=== PATIENT | female | born 1950 | race Caucasian/White ===

== ENCOUNTER 2020-11-09 15:06 | Emergency (ER) | payer MEDICARE, MEDICAID ==
--- NOTE | 2020-11-09 15:20 | EDM.PDOC ---
ED HPI GENERAL MEDICAL PROBLEM - General Chief Complaint: Respiratory Problem Stated Complaint: PAIN IN LEFT CHEST Time Seen by Provider: 11/09/20 15:30 Source of Information: Reports: Patient History Limitations: Reports: Physical Impairment (It is extremely hard of hearing and her hearing aids apparently are broken.) - History of Present Illness INITIAL COMMENTS - FREE TEXT/NARRATIVE: 70-year-old female sent over from [facility] for evaluation of left-sided chest pain that started this morning. Patient reports that she has been coughing paroxysmal Julio C off and on for the better part of 3 weeks. She has a history of COPD but is not on any oxygen. She states she does have nasal congestion and cold symptoms for that length of time. She was tested for COVID- 19 on November 03 and was negative. She does not believe she has had a fever or any chills. Her appetite has been good. She denies any sputum production. No hemoptysis. She has no history of congestive heart failure ECG done by triage nurses does not show any signs of ischemia. He does show early R wave transition at V2 suggesting right ventricular perjury pattern versus septal hypertrophy pattern. Onset: Today (Pleuritic leg pain started in her left anterior and posterior left chest this morning.), Unknown/Unsure (Has had a paroxysmal nonproductive cough for the better part of 3 weeks. Associated with nasal congestion and I believe postnasal drip.) Onset Date: 11/09/20 (Left anterior posterior chest pain started today. Paroxysmal nonproductive cough for the better part of 3 weeks.) Duration: Hour(s):, Waxing/Waning Location: Reports: Chest (Complains of left anterior posterior lower lung pain or chest pain radiating to her back. This started this morning. This is preceded by a nonproductive paroxysmal cough for the last 3 weeks. Associated mild nasal congestion and postnasal drip.) Quality: Reports: Other (Is sharp and stabbing and pleuritic left chest wall) Severity: Mild Improves with: Reports: Rest Worsens with: Reports: Other (Deep breathing and coughing.) Context: Denies: Activity, Exercise, Lifting, Sick Contact, Trauma, Other Associated Symptoms: Reports: No Other Symptoms, Chest Pain, Cough (See history of present illness). 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) Left Chest Pain Score (Numeric/FACES): 4 - Related Data Allergies Allergy/AdvReac Type Severity Reaction Status Date / Time acetaminophen Allergy Other Verified 11/09/20 15:16 [From Tylenol-Codeine #3] codeine Allergy Other Verified 11/09/20 15:16 [From Tylenol-Codeine #3] Home Meds: Home Meds Iron Polysaccharide Complex [Iferex 150] 150 mg PO DAILY 09/12/19 [History] Metoprolol Tartrate 12.5 mg PO BID 09/12/19 [History] Rosuvastatin [Crestor] 20 mg PO DAILY 09/12/19 [History] Acetaminophen [Tylenol Arthritis Pain] 650 mg PO Q6H PRN 11/09/20 [History] Aspirin 81 mg PO DAILY 11/09/20 [History] Cholecalciferol (Vitamin D3) [D-2000] 2,000 unit PO DAILY 11/09/20 [History] Dicyclomine [Bentyl] 20 mg PO Q6H PRN #12 tablet 11/09/20 [Rx] Escitalopram Oxalate [Lexapro] 10 mg PO BEDTIME 11/09/20 [History] Fluticasone Propionate [Flovent] 1 puff IH DAILY 11/09/20 [History] Ipratropium/Albuterol Sulfate [Iprat-Albut 0.5-3(2.5) mg/3 ml] 3 ml IH QID PRN 11/09/20 [History] Melatonin 3 mg PO BEDTIME 11/09/20 [History] Mirtazapine [Remeron] 7.5 mg PO BEDTIME 11/09/20 [History] Paliperidone [Invega] 3 mg PO BEDTIME 11/09/20 [History] QUEtiapine Fumarate [Seroquel] 400 mg PO BID 11/09/20 [History] Sennosides [Senna] 8.6 mg PO BID 11/09/20 [History] polyethylene glycoL 3350 [MiraLAX] 17 gm PO DAILY 11/09/20 [History] Past Medical History Respiratory History: Reports: COPD Genitourinary History: Reports: Other (See Below) (And frequency with urge incontinence.) Psychiatric History: Reports: Dementia - Infectious Disease History Infectious Disease History: Reports: None - Past Surgical History Female Surgical History: Reports: Hysterectomy (Vaginally assisted hysterectomy), Tubal Ligation Social & Family History - Family History Family Medical History: No Pertinent Family History - Tobacco Use Tobacco Use Status *Q: Never Tobacco User - Caffeine Use Caffeine Use: Reports: None - Recreational Drug Use Recreational Drug Use: No - Living Situation & Occupation Living situation: Reports: Extended Care Facility (Currently a resident of [facility].) Occupation: Retired ED ROS GENERAL - Review of Systems Review Of Systems: See Below Constitutional: Denies: Fever, Chills, Malaise, Weakness, Fatigue, Night Sweats, Decreased Appetite, Weight Loss HEENT: Reports: Hearing Loss (She is extremely hard of hearing and her hearing aids are broken.), Sinus Problem (She reports sinuses are congested with a bit of postnasal drip.). Denies: Nosebleed, Throat Pain, Throat Swelling Respiratory: Reports: Pleuritic Chest Pain (Pleuritic type left anterior chest pain rating to her back starting this morning. This is predated by paroxysmal nonproductive cough for the better part of), Cough ( 3 weeks.). Denies: Shortness of Breath, Wheezing, Sputum, Hemoptysis ( Nonproductive cough x3 weeks) Cardiovascular: Reports: Chest Pain (Anterior lower chest pain rating through to her back starting this morning.), Blood Pressure Problem. Denies: Claudication, Dyspnea on Exertion, Edema, Lightheadedness, Orthopnea, Palpitations Endocrine: Reports: Fatigue GI/Abdominal: Reports: Constipation (No problems with constipation.) : Reports: Frequency (Urge component at times), Incontinence Musculoskeletal: Reports: Back Pain, Joint Pain (Sips neck and shoulders at times.) Skin: Reports: No Symptoms Neurological: Reports: No Symptoms Psychiatric: Reports: No Symptoms Hematologic/Lymphatic: Reports: No Symptoms Immunologic: Reports: No Symptoms ED EXAM, GENERAL - Physical Exam Exam: See Below Exam Limited By: Physical Impairment (Very hard of hearing. I did take my mask off so that she could lip read to understand me.) General Appearance: Alert, WD/WN, No Apparent Distress, Other (Temperature is 37.2 degrees. Heart rate was 99 and sinus respectively is 26 with O2 sats of 95% after getting into the exam room. BP is BP is 155/74) Eye Exam: Bilateral Eye: Normal Inspection, PERRL (No blepharal pallor or scleral icterus.) Ears: Normal TMs Throat/Mouth: Normal Oropharynx, Other Head: Atraumatic, Normocephalic (Is mildly dry and coated. No oropharyngeal infection or obvious postnasal drip evident.) Neck: Normal Inspection, Full Range of Motion, Tender Lateral (Stout on palpation of the lateral cervical spine bilaterally. She states no worse than normal.). No: Lymphadenopathy (L), Lymphadenopathy (R) Respiratory/Chest: No Accessory Muscle Use, Respiratory Distress (If needed rest with O2 sats of 95%.), Decreased Breath Sounds (He decreased air to the lower 20% of the lungs posteriorly.), Rales (Rales/crackles left lung base and perhaps very few appreciated in the right lung base.). No: Lungs Clear, Normal Breath Sounds Cardiovascular: Regular Rate, Rhythm, No Gallop, No JVD, No Murmur. No: No Edema Peripheral Pulses: 2+: Carotid (L), Carotid (R), Posterior Tibial (L), Posterior Tibial (R), Dorsalis Pedis (L), Dorsalis Pedis (R) GI/Abdominal: Normal Bowel Sounds, Soft, Non-Tender, No Organomegaly, No Mass, Pelvis Stable, Distended (Julio C distended and slightly tympanic to percussion in the epigastrium compatible with some degree of aerophagia.), Other (Infraumbilical surgical wound she states from tubal ligation.) Back Exam: Normal Inspection, Decreased Range of Motion (Watered kyphosis thoracic spine.), Other. No: CVA Tenderness (L), CVA Tenderness (R) Extremities: Normal Inspection, Normal Range of Motion, Non-Tender, Pedal Edema (Trace pedal edema at the ankles.) Neurological: Alert, Oriented, CN II-XII Intact, Normal Cognition Psychiatric: Normal Affect, Normal Mood, Other (Not appear to be in a severe pain.) Skin Exam: Warm, Dry, Intact, Normal Color, No Rash #1 Interpretation EKG Date: 11/09/20 Time: 15:14 Rhythm: NSR Rate (Beats/Min): 94 [place]: Normal P-Wave: Present QRS: Other (Early R wave transition V2 consider right ventricular hypertrophy versus septal hypertrophy pattern.) ST-T: Normal QT: Normal EKG Interpretation Comments: Borderline ECG no signs of ischemia Course - Vital Signs Last Recorded V/S: Last Vital Signs Temp 37.2 C 11/09/20 15:13 Pulse 87 11/09/20 18:15 Resp 18 11/09/20 18:15 BP 147/85 H 11/09/20 18:15 Pulse Ox 97 11/09/20 18:15 - Orders/Labs/Meds Orders: Active Orders 24 hr Category Date Time Status PRO B-TYPE NATRIUR PEPT,BNPPRO [CHEM] Stat Lab 11/09/20 15:52 Received Peripheral IV Insertion Adult [OM.PC] Stat Oth 11/09/20 15:35 Ordered EKG 12 Lead [EK] Stat Ther 11/09/20 15:19 Ordered Labs: Laboratory Tests 11/09/20 11/09/20 11/09/20 Range/Units 15:52 15:52 15:52 WBC 8.49 (3.98-10.04) K/mm3 RBC 4.44 (3.98-5.22) M/mm3 Hgb 13.1 (11.2-15.7) gm/dl Hct 40.6 (34.1-44.9) % MCV 91.4 (79.4-94.8) fl MCH 29.5 (25.6-32.2) pg MCHC 32.3 (32.2-35.5) g/dl RDW Std Deviation 52.6 H (36.4-46.3) fL Plt Count 378 H (182-369) K/mm3 MPV 8.6 L (9.4-12.3) fl Neut % (Auto) 36.4 (34.0-71.1) % Lymph % (Auto) 44.6 (19.3-51.7) % [place] % (Auto) 12.4 (4.7-12.5) % Eos % (Auto) 6.0 H (0.7-5.8) Baso % (Auto) 0.4 (0.1-1.2) % Neut # (Auto) 3.09 (1.56-6.13) K/mm3 Lymph # (Auto) 3.79 H (1.18-3.74) K/mm3 [place] # (Auto) 1.05 H (0.24-0.36) K/mm3 Eos # (Auto) 0.51 H (0.04-0.36) K/mm3 Baso # (Auto) 0.03 (0.01-0.08) K/mm3 PT 10.7 (9.7-12.0) SECONDS INR 1.00 APTT 26.1 (21.7-31.4) SECONDS D-Dimer, Quantitative (0.19-0.50) mg/L Sodium 142 (136-145) mEq/L Potassium 4.2 (3.5-5.1) mEq/L Chloride 106 (98-107) mEq/L Carbon Dioxide 26 (21-32) mEq/L Anion Gap 14.2 (5-15) BUN 20 H (7-18) mg/dL Creatinine 1.0 (0.55-1.02) mg/dL Est Cr Clr Drug Dosing 49.45 mL/min Estimated GFR (MDRD) 55 (>60) mL/min BUN/Creatinine Ratio 20.0 H (14-18) Glucose 98 (83-115) mg/dL Calcium 9.7 (8.5-10.1) mg/dL Magnesium 2.1 (1.8-2.4) mg/dl Total Bilirubin 0.2 (0.2-1.0) mg/dL AST 14 L (15-37) U/L ALT 19 (14-59) U/L Alkaline Phosphatase 95 (46-116) U/L CK-MB (CK-2) < 0.5 (0-3.6) ng/ml Troponin I < 0.017 (0.00-0.056) ng/mL C-Reactive Protein < 0.2 (<1.0) mg/dL Total Protein 7.7 (6.4-8.2) g/dl Albumin 3.8 (3.4-5.0) g/dl Globulin 3.9 gm/dL Albumin/Globulin Ratio 1.0 (1-2) Urine Color (Yellow) Urine Appearance (Clear) Urine pH (5.0-8.0) Ur Specific [place] (1.005-1.030) Urine Protein (Negative) Urine Glucose (UA) (Negative) Urine Ketones (Negative) Urine Occult Blood (Negative) Urine Nitrite (Negative) Urine Bilirubin (Negative) Urine Urobilinogen (0.2-1.0) Ur Leukocyte Esterase (Negative) Urine RBC (0-5) /hpf Urine WBC (0-5) /hpf Ur Squamous Epith Cells (0-5) /hpf Urine Bacteria (FEW) /hpf Urine Mucus (FEW) /hpf 11/09/20 11/09/20 Range/Units 15:52 16:39 WBC (3.98-10.04) K/mm3 RBC (3.98-5.22) M/mm3 Hgb (11.2-15.7) gm/dl Hct (34.1-44.9) % MCV (79.4-94.8) fl MCH (25.6-32.2) pg MCHC (32.2-35.5) g/dl RDW Std Deviation (36.4-46.3) fL Plt Count (182-369) K/mm3 MPV (9.4-12.3) fl Neut % (Auto) (34.0-71.1) % Lymph % (Auto) (19.3-51.7) % Carl[place] % (Auto) (4.7-12.5) % Eos % (Auto) (0.7-5.8) Baso % (Auto) (0.1-1.2) % Neut # (Auto) (1.56-6.13) K/mm3 Lymph # (Auto) (1.18-3.74) K/mm3 [place] # (Auto) (0.24-0.36) K/mm3 Eos # (Auto) (0.04-0.36) K/mm3 Baso # (Auto) (0.01-0.08) K/mm3 PT (9.7-12.0) SECONDS INR APTT (21.7-31.4) SECONDS D-Dimer, Quantitative 0.35 (0.19-0.50) mg/L Sodium (136-145) mEq/L Potassium (3.5-5.1) mEq/L Chloride (98-107) mEq/L Carbon Dioxide (21-32) mEq/L Anion Gap (5-15) BUN (7-18) mg/dL Creatinine (0.55-1.02) mg/dL Est Cr Clr Drug Dosing mL/min Estimated GFR (MDRD) (>60) mL/min BUN/Creatinine Ratio (14-18) Glucose (83-115) mg/dL Calcium (8.5-10.1) mg/dL Magnesium (1.8-2.4) mg/dl Total Bilirubin (0.2-1.0) mg/dL AST (15-37) U/L ALT (14-59) U/L Alkaline Phosphatase (46-116) U/L CK-MB (CK-2) (0-3.6) ng/ml Troponin I (0.00-0.056) ng/mL C-Reactive Protein (<1.0) mg/dL Total Protein (6.4-8.2) g/dl Albumin (3.4-5.0) g/dl Globulin gm/dL Albumin/Globulin Ratio (1-2) Urine Color Yellow (Yellow) Urine Appearance Clear (Clear) Urine pH 7.0 (5.0-8.0) Ur Specific [place] 1.020 (1.005-1.030) Urine Protein Negative (Negative) Urine Glucose (UA) Negative (Negative) Urine Ketones Negative (Negative) Urine Occult Blood Negative (Negative) Urine Nitrite Negative (Negative) Urine Bilirubin Negative (Negative) Urine Urobilinogen 0.2 (0.2-1.0) Ur Leukocyte Esterase Trace H (Negative) Urine RBC 0-5 (0-5) /hpf Urine WBC 5-10 H (0-5) /hpf Ur Squamous Epith Cells 0-5 (0-5) /hpf Urine Bacteria Few (FEW) /hpf Urine Mucus Few (FEW) /hpf Meds: Medications Discontinued Medications Generic Name Dose Route Start Last Admin Trade Name Freq PRN Reason Stop Dose Admin Dicyclomine HCl 20 mg 11/09/20 17:46 11/09/20 17:52 Bentyl PO 11/09/20 17:47 20 mg ONETIME ONE Administration Furosemide 40 mg 11/09/20 16:41 11/09/20 17:44 Lasix IVPUSH 11/09/20 16:42 40 mg NOW ONE Administration Lorazepam 0.5 mg 11/09/20 18:07 11/09/20 18:14 Ativan PO 11/09/20 18:08 0.5 mg ONETIME ONE Administration Sodium Chloride 10 ml 11/09/20 15:35 11/09/20 15:41 Saline Flush FLUSH 10 ml ASDIRECTED PRN Administration Keep Vein Open - Radiology Interpretation Free Text/Narrative:: 70-year-old female presents to the ED sent over from [facility] due to recognized crackles left lung base and complaints of pleuritic chest pain starting in the anterior left lower lower chest field rating through to her left lower back. She reports that she has had a cough which is not bringing up any sputum for the last 3 weeks associated with mild nasal congestion. COVID-19 screen was last done on November 03 and was negative. She has no fever at this time. ECG done by triage nurse shows no signs of ischemia. Exam does reveal crackles left lung base. She has no history of congestive heart failure. Plan 2 view chest x-ray be obtained with routine labs. Not able to obtain a BNP as the analyzer is down. - Re-Assessments/Exams Free Text/Narrative Re-Assessment/Exam: 11/09/20 16:39 Chest x-ray reveals no cardiomegaly. Prominent aortic arch. No obvious pleural effusion on the left side although there is some mild blunting of the costophrenic angle. No obvious pulmonary infiltrate. Evidence of previous surgery to the cervical spine with hardware in place. 11/09/20 16:41 White count is normal at 8.49. Auto differential shows 36.4% neutrophils and 44.6% lymphocytes a right shift suggesting viral infection. Hemoglobin is 13.1 with hematocrit of 40.6. Platelet count 378,000 mildly elevated. PT is 10.7 with an INR of 1.0 PTT is 26.1 D-dimer is normal at 0.35. Sodium 142 with a potassium of 4.2. Chloride is 106 with a bicarb of 26. Anion gap is 14.2. BUN is 20 with a creatinine of 1.0. Estimated GFR is 55. Glucose is 98 calcium is 9.7. Magnesium 2.1. Liver function is normal. CK-MB fraction is less than 0.5 troponin I is less than 0.017 C-reactive protein is less than 0.2. Protein 7.7 with albumin fraction of 3.8. 11/09/20 16:48 chest x-ray over read by radiologist reveals minimal density is seen behind the left heart within the left lung base most likely due to minimal atelectasis. Slight atelectasis is also seen within the right lung base. Lungs otherwise appear clear. Slight apical pleural thickening on the left side is appreciated. Prior cervical spine surgery is appreciated. Prior cholecystectomy is noted several old healed left-sided rib fractures are noted as well. I am going to proceed with CT of the chest without contrast to help further delineate infiltrate left lower lung field. The Lasix 40 mg IV at this time. 11/09/20 17:29 CT of the chest reveals diffuse vascular congestion pattern vs chronic interstitial changes . Cardiac silhouette is essentially normal. 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 Patient has a fairly large hiatal hernia almost-- 40% of her stomach is up in her chest. The liver shows mild steatosis. Gallbladder is gone. Spleen is normal pancreas is lost its normal convexities. No ductal dilatation appreciated both kidneys show cortical atrophy with no stones. 11/09/20 17:46 the scan over read by radiologist is now available. He reports lungs have a chronic appearing interstitial change within the lung parenchyma with areas of parenchymal scarring and atelectasis. No definite pneumonia or pulmonary edema is identified. Pleural spaces are unremarkable with no pneumothorax no pleural effusion. Mild coronary atherosclerosis is noted. The heart is not enlarged. There is no pericardial effusion. Moderate sized hiatal hernia is appreciated. There is patchy atherosclerotic calcification in the thoracic aorta. No definite aneurysm is identified. Lymph nodes are unremarkable with no enlarged lymph nodes. Mild to moderate grade degenerative changes are present within the thoracic spine with a compression fracture at the T7 level. There is approximate 20% volume loss of the anterior body height and 5% loss of the posterior body height. Fracture is age-indeterminate but could be acute. Correlation for pain in this region is suggested if there is midthoracic pain consider MRI for further evaluation of edema which would suggest recent compression fracture. Postsurgical changes are noted in the lower cervical spine with hardware in place. Upper abdomen shows postsurgical changes compatible with prior cholecystectomy. The remainder of the upper abdomen is unremarkable aside from the hiatal hernia. 11/09/20 18:07 nurse to nurse discussion with nursing staff at [facility] indicate that she is very stubborn and I believe due to being hearing impaired sometimes does not understand what is requested of her. They indicate that they have a great deal of difficulty getting her on and off the bus particularly when [facility] the [facility]. They indicate that she does better if she has a little bit of Ativan prior to coming back to the [facility] and is much more cooperative with staff. For this reason I will give her 0.5 mg of Ativan orally. Departure - Departure Time of Disposition: 17:49 Disposition: Home, Self-Care 01 Condition: Fair Clinical Impression: Non-cardiac chest pain, Interstitial lung disease, Hiatal hernia with gastroesophageal reflux Compression fracture of T7 vertebra Qualifiers: Encounter type: initial encounter Qualified Code(s): S22.060A - Wedge compression fracture of T7-T8 vertebra, initial encounter for closed fracture - Discharge Information *PRESCRIPTION DRUG MONITORING PROGRAM REVIEWED*: Not Applicable *COPY OF PRESCRIPTION DRUG MONITORING REPORT IN PATIENT JERE: Not Applicable Prescriptions: Dicyclomine [Bentyl] 20 mg PO Q6H PRN #12 tablet PRN Reason: Abdominal cramps/diarrhea Instructions: Hiatal Hernia Referrals: Xander Pinto MD [Primary Care Provider] - Forms: ED Department Discharge Additional Instructions: Evaluation in the emergency room today under somewhat difficult circumstances since the patient is very hard of hearing and her hearing aids are broken. There was certainly a language and barrier/communication problem. From what I can ascertain she has been experiencing mid to left sided chest pain radiating from the front through to the back. No associated cough fever or chills identified. Crackles were appreciated in the left lung base by nursing staff that [facility]. On examination I to could hear loud crackles in the left lung base and a few in the right lung base as well. A 2 view chest x-ray revealed a soft tissue mass behind the heart of unclear etiology. Therefore CT scan of her chest was carried out and revealed that this is her stomach up in her chest. Approximately 40% of her stomach is in her chest which is a very large hiatal hernia making her prone to reflux early satiety and a constant fullness in the lower to mid anterior chest. This stretches the opening in the diaphragm where the food pipe goes through and will cause pain along both costal margins sometimes more so to the left than the right. There was no evidence of heart failure. CT does reveal advanced interstitial lung disease which means scarring and fibrosis of lung tissues on both sides. This will cause crackles on auscultation in the lung base mimicking heart failure. Treatment is to use Bentyl 20 mg tablet on a as needed basis for chest pain as needed. She is not a candidate for any surgical management of hiatal hernia at this time. Her condition will be considered chronic. Of note the stomach visualized in her chest does contain food at this time. I would suggest clear fluids for the next 12 hours until the stomach and empty itself which the Bentyl will help with. No other changes made to her medications at this time. Sepsis Event Note (ED) - Evaluation Sepsis Screening Result: Possible Sepsis Risk - My Orders Last 24 Hours: My Active Orders 11/09/20 15:19 EKG 12 Lead [EK] Stat 11/09/20 15:35 Peripheral IV Insertion Adult [OM.PC] Stat 11/09/20 15:52 PRO B-TYPE NATRIUR PEPT,BNPPRO [CHEM] Stat - Assessment/Plan Last 24 Hours: My Active Orders 11/09/20 15:19 EKG 12 Lead [EK] Stat 11/09/20 15:35 Peripheral IV Insertion Adult [OM.PC] Stat 11/09/20 15:52 PRO B-TYPE NATRIUR PEPT,BNPPRO [CHEM] Stat
[2020-11-09] MEDS ORDERED: Sodium Chloride 0.9% 10 ML Syringe FLUSH PRN (15:35)
--- NOTE | 2020-11-09 16:40 | CR ---
Chest: PA and lateral views of the chest were obtained. Comparison: No prior chest imaging is available. Small hiatal hernia is noted. Heart size and mediastinum are normal. Minimal density is seen behind the left heart within the left lung base most likely due to minimal atelectasis. Slight atelectasis is seen within the right lung base. Lungs otherwise are clear. Slight apical pleural thickening on the left side is seen. Prior cervical spine surgery is noted. Prior cholecystectomy is noted. Several old healed left-sided rib fractures are noted. Impression: 1. Findings as noted above believed to be incidental. 2. Nothing acute is appreciated on 2 view chest x-ray. Diagnostic code #2
[2020-11-09] MEDS ORDERED: Furosemide 40 MG/4 ML VIAL IVPUSH ONE (16:41)
[2020-11-09] MEDS ORDERED: Dicyclomine 10 MG Cap PO ONE (17:46)
--- NOTE | 2020-11-09 17:52 | CT ---
CT chest Technique: Multiple axial sections were obtained from above the lung apices inferiorly through the lung bases. Intravenous contrast was not utilized. Reconstructed coronal and sagittal images were obtained. Comparison: Prior chest x-ray performed on the same day (4:05 PM). Findings: Thoracic aorta shows atherosclerotic change without aneurysm. Mediastinum shows no adenopathy. No hilar adenopathy is seen. There is a hiatal hernia being noted. Other visualized upper abdominal structures show nothing acute. Note is made of surgical clips from prior cholecystectomy. Lung window settings were reviewed which show linear densities posteriorly within the upper and lower lungs possibly due to prominent atelectasis. Possible mild areas of pneumonia are also within the differential. No pleural effusions are seen. No pneumothorax is noted. Incidental note of mild apical pleural thickening is seen. Bone window settings were reviewed which show a slight compression deformity within the mid thoracic spine which is likely incidental. Previous cervical spine surgery is noted. No acute osseous abnormality is seen. Incidental note of 2 healed rib fractures within the left upper chest. Impression: 1. Linear areas of increased density posteriorly within the upper and lower lungs on both sides most likely representing atelectasis. Mild areas of pneumonia are possible. 2. Other findings as noted above which are believed to be incidental. Diagnostic code #3
[2020-11-09] MEDS ORDERED: LORazepam 0.5 MG Tab PO ONE (18:07)
== END 2020-11-09 18:15 | disposition home or self-care (01) ==
LOC: JD.ED 15:06
DX: J84.9 Interstitial pulmonary disease, unspecified (principal); K44.9 Diaphragmatic hernia without obstruction or gangrene; K21.9 Gastro-esophageal reflux disease without esophagitis; J44.9 Chronic obstructive pulmonary disease, unspecified; S22.069A Unspecified fracture of T7-T8 vertebra, initial encounter for closed fracture; F03.90 Unspecified dementia, unspecified severity, without behavioral disturbance, psychotic disturbance, mood disturbance, and anxiety; Z88.6 Allergy status to analgesic agent; Z88.5 Allergy status to narcotic agent; Z79.82 Long term (current) use of aspirin; Z79.899 Other long term (current) drug therapy
CPT/HCPCS: 36415; 71046; 71250; 80053; 81001; 82553; 83735; 83880; 84484; 85025; 85379; 85610; 85730; 86140; 93005; 96374; 99285; A9270; J1940; 93010; 99284

== ENCOUNTER 2022-04-22 12:40 | Day surgery (SDC) | payer MEDICARE, MEDICAID ==
[~2022-04-22 12:40] MED LIST: Cefuroxime 10 MG/ML SYRINGE EYERT SCH; Lidocaine 1% PF 2 ML SDV INJECT SCH; Pilocarpine 4% Ophth Soln 15 ML Bot EYERT SCH
[2022-04-22] MEDS: Polymyxin B/Trimethoprim 10 ML Bottle EYERT SCH ×3 (13:03→14:35)
[2022-04-22] MEDS: Brimonidine 0.2% Ophth Soln 5 ML Bottle EYERT SCH ×3 (13:07→14:35)
[2022-04-22] MEDS: Phenylephrine 2.5% Ophth Soln 2 ML Bot EYERT SCH ×5 (13:10→14:15)
[2022-04-22] MEDS: Tropicamide 1% Ophth Soln 15 ML Bottle EYERT SCH ×4 (13:17→13:52)
[2022-04-22] MEDS: Tetracaine HCl/PF 0.5% 4 ML Bottle EYEBOTH SCH ×4 (14:04→14:23)
== END 2022-04-22 15:05 ==
LOC: JD.SDS 12:40
PROVIDERS: ATTEND Ophthalmology
DX: H25.813 Combined forms of age-related cataract, bilateral (principal); I10 Essential (primary) hypertension; D64.9 Anemia, unspecified; F41.9 Anxiety disorder, unspecified; F32.A Depression, unspecified; E78.00 Pure hypercholesterolemia, unspecified; K21.9 Gastro-esophageal reflux disease without esophagitis; K58.9 Irritable bowel syndrome, unspecified; G47.00 Insomnia, unspecified; F03.90 Unspecified dementia, unspecified severity, without behavioral disturbance, psychotic disturbance, mood disturbance, and anxiety; J44.9 Chronic obstructive pulmonary disease, unspecified; Z79.82 Long term (current) use of aspirin; Z79.899 Other long term (current) drug therapy; Z90.710 Acquired absence of both cervix and uterus; Z98.890 Other specified postprocedural states
CPT/HCPCS: 66984; J0697; C1780

== ENCOUNTER 2022-05-27 14:02 | Day surgery (SDC) | payer MEDICARE, MEDICAID ==
[~2022-05-27 14:02] MED LIST changes: +Cefuroxime 10 MG/ML SYRINGE EYELF SCH; -Cefuroxime 10 MG/ML SYRINGE EYERT SCH; +Pilocarpine 4% Ophth Soln 15 ML Bot EYELF SCH; -Pilocarpine 4% Ophth Soln 15 ML Bot EYERT SCH
[2022-05-27] MEDS: Polymyxin B/Trimethoprim 10 ML Bottle EYELF SCH ×3 (14:51→16:46)
[2022-05-27] MEDS: Brimonidine 0.2% Ophth Soln 5 ML Bottle EYELF SCH ×3 (14:55→16:46)
[2022-05-27] MEDS: Phenylephrine 2.5% Ophth Soln 2 ML Bot EYELF SCH ×5 (14:59→16:26)
[2022-05-27] MEDS: Tropicamide 1% Ophth Soln 15 ML Bottle EYELF SCH ×4 (15:06→15:56)
[2022-05-27] MEDS: Tetracaine HCl/PF 0.5% 4 ML Bottle EYEBOTH SCH ×4 (16:14→16:37)
== END 2022-05-27 17:00 ==
LOC: JD.SDS 14:02
PROVIDERS: ATTEND Ophthalmology
DX: H25.812 Combined forms of age-related cataract, left eye (principal); G30.9 Alzheimer's disease, unspecified; F41.9 Anxiety disorder, unspecified; F32.A Depression, unspecified; I10 Essential (primary) hypertension; E78.00 Pure hypercholesterolemia, unspecified; K21.9 Gastro-esophageal reflux disease without esophagitis; Z88.8 Allergy status to other drugs, medicaments and biological substances; Z88.5 Allergy status to narcotic agent; Z98.890 Other specified postprocedural states; Z79.82 Long term (current) use of aspirin; F02.80 Dementia in other diseases classified elsewhere, unspecified severity, without behavioral disturbance, psychotic disturbance, mood disturbance, and anxiety
CPT/HCPCS: 66984; C1780; J0697

== ENCOUNTER 2024-09-13 07:02 | Emergency (ER) | payer MEDICARE, MEDICAID | END 2024-09-13 08:29 | disposition home or self-care (01) | LOC: JD.ED 07:02 | DX: S51.011A Laceration without foreign body of right elbow, initial encounter (principal); H66.91 Otitis media, unspecified, right ear; H72.91 Unspecified perforation of tympanic membrane, right ear; J34.89 Other specified disorders of nose and nasal sinuses; G30.9 Alzheimer's disease, unspecified; F02.80 Dementia in other diseases classified elsewhere, unspecified severity, without behavioral disturbance, psychotic disturbance, mood disturbance, and anxiety; R09.81 Nasal congestion; I10 Essential (primary) hypertension; E78.00 Pure hypercholesterolemia, unspecified; J44.9 Chronic obstructive pulmonary disease, unspecified; Z90.710 Acquired absence of both cervix and uterus; Z79.82 Long term (current) use of aspirin; Z79.899 Other long term (current) drug therapy; Z79.51 Long term (current) use of inhaled steroids; Z88.6 Allergy status to analgesic agent; Z88.8 Allergy status to other drugs, medicaments and biological substances; W19.XXXA Unspecified fall, initial encounter | CPT/HCPCS: 99284 ==